=== PATIENT | male | born 1970 | race Caucasian/White ===

== ENCOUNTER 2024-03-19 15:41 | Emergency (ER) | payer OTHER, SELFPAY ==
[2024-03-19 15:44] VITALS: BP 156/97
--- NOTE | 2024-03-19 16:47 | ED.GENMED ---
History of Present Illness
General
Chief Complaint: Insect Sting
Source: patient
Time Seen by Provider: 03/19/24 16:18
History of Present Illness
History of Present Illness:
53yoM with a history of hypertension presenting for evaluation of an insect bite to the left ankle. Patient states he was stung by an unknown insect several days ago. He reports a gradual worsening of swelling and redness to the area. He is also
having localized itching to the area and pain with weight bearing. He denies any fevers or chills. He is otherwise asymptomatic.
Past History
Past History
ED Past Medical History: HTN
ED Past Surgical History: None
Patient has exhibited threatening behavior?: No
Social History
Tobacco: Non-smoker
Alcohol: Occasional
Drug: None
Personal:
Living: with family
Employment: Employed
Family History
Family History: CAD
Phy Exam
General Physical Exam
General Presentation: well appearing and no apparent distress
General age: appears stated age
General Skin: warm and dry
General Habitus: normal
General Mental: alert
Cardiovascular Exam
Cardiovascular Exam: normal peripheral pulses (2+ L DP pulse)
Musculoskeletal Exam
Musculoskeletal Exam: full ROM (ROM of L ankle normal. No bony tenderness. )
Skin Exam
Skin Exam: other (Insect bite noted to L lateral ankle with surrounding warmth and erythema consistent with localized reaction. No fluctuance, drainage, crepitus, or pain out of proportion. )
Psychiatric Exam
Psychiatric Exam: normal mood/affect
Course
Vital Signs
Initial and Last Documented VS:
Initial Vital Signs
Temp Pulse Resp BP Pulse Ox
97.7 F 105 16 156/97 97
03/19/24 15:44 03/19/24 15:44 03/19/24 15:44 03/19/24 15:44 03/19/24 15:44
Last Documented Vital Signs
Temp Pulse Resp BP Pulse Ox
97.7 F 105 16 156/97 97
03/19/24 15:44 03/19/24 15:44 03/19/24 15:44 03/19/24 15:44 03/19/24 15:44
MDM/Problems Addressed
Differential Diagnosis Includes:
53yoM here with L ankle swelling and redness after an insect bite/sling a few days ago. No fevers or systemic symptoms. He is afebrile and hemodynamically stable. He is well appearing in no distress. Insect bite noted to L lateral ankle with
surrounding erythema and warmth. ROM of ankle normal. LLE is neurovascularly intact. Differential diagnosis includes localized reaction vs. developing cellulitis. No clinical evidence of abscess or lymphangitis.
No indication for labs/imaging at this time. Will start patient on prednisone and Keflex. Supportive care discussed. Advised f/u with PCP and strict ED return precautions discussed. He expressed understanding and is agreeable to plan. Patient
discharged in stable condition.
*Critical Care Note
Total Time (30-74mins, 75-104mins- exclusive of procedures): Not Applicable
ED Attending Note
-
Portions of this chart may have been created with voice recognition software.� Occasional wrong word or��sound alike� substitutions may have occurred due to the inherent limitations of voice recognition software.
Discharge Plan
Departure
Patient Disposition: Home (Routine Discharge)
Date of Disposition: 03/19/24
Time of Disposition: 16:48
Patient with high blood pressure during this ER visit?: Yes
Discharge Problem:
Insect bite of left ankle with local reaction
Instructions: Insect Bites and Stings (DC)
Prescriptions:
New
cephalexin 500 mg capsule
500 mg PO Q6H 7 Days Qty: 28 0RF
prednisone 50 mg tablet
50 mg PO DAILY Qty: 5 0RF
No Action
lisinopril 10 MG tablet
10 mg PO DAILY
Referrals:
Messi Velez MD [Family Provider] -
Activity Restrictions/Additional Instructions:
Take prednisone and antibiotics as prescribed. Take Benadryl 25mg every 6 hours as needed for itching.
Please follow-up with your family doctor. Return to the ER with any worsening symptoms, spreading redness, fevers, chills.
Interventions
Interventions:
*Risk Screen - Suicide Last Done: 03/19/24 17:11
*General Assessment Last Done: 03/19/24 17:11
*Neglect/Abuse Screening Last Done: 03/19/24 17:11
ED- Fall Risk Assessment Last Done: 03/19/24 17:11
*ED COVID-19 Vaccine History Last Done: 03/19/24 17:11
*Nursing Disposition Last Done: 03/19/24 17:11
ED-Skin Assessment Last Done: 03/19/24 17:11
ED- Pulmonary Assessment Last Done: 03/19/24 17:11
Discharge Date and Time
Discharge Date/Time: 03/19/24 17:12
Print Language: [id number]
== END 2024-03-19 17:12 | disposition home or self-care (01) ==
LOC: EMR 15:41
PROVIDERS: EMERGENCY PHYSICIAN Emergency Medicine; FAMILY PHYSICIAN Internal Medicine
DX: S90.562A Insect bite (nonvenomous), left ankle, initial encounter (principal); W57.XXXA Bitten or stung by nonvenomous insect and other nonvenomous arthropods, initial encounter; I10 Essential (primary) hypertension
CPT/HCPCS: 99282